=== PATIENT | female | born 1975 | race Caucasian/White ===

== ENCOUNTER 2020-05-20 05:48 | Day surgery (SDC) | payer BC ==
--- NOTE | 2020-05-17 14:01 | History and Physical Report ---
History of Present Illness Date of examination: 05/16/20 History of present illness: Patient has been reassessed/reevaluated. H&P has been reviewed. No interval changes. This is a 44 years old female who presents with menstrual disorder. She complains of heavy bleeding, lack of menses, clotting, fatigue and cramping, but denies mid-cycle spotting, dysmenorrhea, history of ovarian cysts, history of thyroid disease, history of fibroids, history of PCOS, history of bleeding disorder and lightheadedness. Interval between menses is > 30 days. Patient's work up has included a tranvaginal ultrasound which revealed thicken endometrium with fliud and endometrial mass The patient also presents with complains of "knot in my thigh" and desires it's removal Vital Signs: Patient Profile: 44 Years Old Female LMP: 05/14/2020 Height: 61 inches Weight: 277 pounds BMI: 52.33 Temp: 97.7 degrees F Menstrual History: LMP (date): 05/14/2020 Current Method of Contraception: None Date of Last Pap Smear: 03/16/2020 Past History : 2 Term Births: 2 Premature Births: 0 Living Children: 2 Para: 2 Mult. Births: 0 Prev : 2 Aborta: 0 Elect. Ab: 0 Spont. 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 Operations: (1992) (1997) Abnormal PAP: negative Uterine Anomaly: positive Infection History HIV Risk Eval: no TB exposure: no Hx of STD: None Current Allergies No known allergies Past Medical History: Negative Past Medical History Past Surgical History: (1992) (1997) Family History Summary: Other Family Member - Has No Family History of Ovarvian Cancer - Entered On: 03/16/2020 Other Family Member - Has No Family History of Colon Cancer - Entered On: 03/16/2020 Other Family Member - Has No Family History of Breast Cancer - Entered On: 03/16/2020 Other Family Member - Has Family History of Lung Cancer - Entered On: 03/16/2020 Risk Factors: Smoked Tobacco Use: Never smoker Smokeless Tobacco Use: Never Passive smoke exposure: no Drug use: no HIV high-risk behavior: no Caffeine use: <1 drinks per day Alcohol use: yes Type: occ Exercise: yes Times per week: 2 Seatbelt use: 100 % PAP Smear History: Date of Last PAP Smear: 03/16/2020 Review of Systems General Denies fever, chills, sweats, anorexia, fatigue, weakness, malaise, weight loss and sleep disorder. Complains of amenorrhea and abnormal vaginal bleeding. Denies vaginal discharge, incontinence, dysuria, hematuria, urinary frequency, menorrhagia, pelvic pain, genital sores, decreased libido, painful periods, painful sex, urinary urgency, hot flashes, vaginal dryness, vaginal itching and vaginal odor. CV Denies chest pains, palpitations, syncope, dyspnea on exertion, orthopnea, PND and peripheral edema. Resp Denies cough, dyspnea at rest, excessive sputum, hemoptysis, wheezing and pleurisy. GI Denies nausea, vomiting, diarrhea, constipation, change in bowel habits, abdominal pain, melena, hematochezia, jaundice, gas/bloating, indigestio n/heartburn, dysphagia and odynophagia. Breast Denies left breast lump, right breast lump, nipple discharge, bloody discharge from nipple, breast pain, abnormal mammogram and breast enlargement. Psych Denies depression, anxiety, irritability and mood swings. Past History Past Medical History: other (SEE HPI) Past Surgical History: Other (SEE HPI) Social history: full code (SEE HPI) Family history: other (SEE HPI) Medications and Allergies Allergies Allergy/AdvReac Type Severity Reaction Status Date / Time No Known Allergies Allergy Unverified 05/10/20 17:13 Home Medications Medication Instructions Recorded Confirmed Last Taken Type Phentermine HCl [Adipex-P] 37.5 mg PO QAM 05/10/20 05/10/20 04/29/20 History Review of Systems Constitutional: other (SEE HPI) Exam - Physical Exam Narrative exam: HEENT: normocephalic, no lesions or deformities Skin no significant abnormal lesions or rashes Chest: respiratory effort normal, clear to auscultation CV: regular, normal S1-S2, no murmur, no rub, no gallop Abdomen: obese normal bowel sounds, soft, nontender, no HSM Well healed pfannenstiel scar Neuro: no gross anomalities Extremities: no clubbing, cyanosis, or edema left thigh 4cm superficial mobile mass nontender c/w lipoma 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 Questions answered. Medical and surgical treatment options discussed Patient desires definitive treatment . Patient desires least invasive procedure Patient desires hysteroscopy ndications for and description of the hysteroscopy given. .Discussed risk of surgery including infection, bleeding and risk of perforating her uterus. Questions answered. Patient understands and desires to proceed (2) Menorrhagia Current Visit: No Status: Acute Qualifiers: Menorrhagia type: with irregular cycle Qualified Code(s): N92.1 - Excessive and frequent menstruation with irregular cycle Plan to address problem: Probably secondary to # 1 (3) Localized swelling, mass and lump, left lower limb Current Visit: No Status: Acute Plan to address problem: Lesion consistent with lipoma Patient desires removal Discuss the risks of the surgery including infection, bleeding possibly heavy enough to require a blood transfusion, possible damage to adjacent organs. . Questions answered patient agreed to proceed
[2020-05-18 09:49] LABS: Basophils % (Auto) 0.3 % (0.0-1.8); Eosinophils # (Auto) 0.1 K/mm3 (0.0-0.4); Eosinophils % (Auto) 1.2 % (0.0-4.3); Hematocrit 38.2 % (30.3-42.9); Hemoglobin 12.4 gm/dl (10.1-14.3); Lymphocytes # (Auto) 1.9 K/mm3 (1.2-5.4); Lymphocytes % (Auto) 28.9 % (13.4-35.0); Mean Corpuscular HGB Conc 32 % (30-34); Mean Corpuscular Volume 90 fl (79-97); Monocytes # (Auto) 0.3 K/mm3 (0.0-0.8); Monocytes % (Auto) 5.1 % (0.0-7.3); Platelet Count 293 K/mm3 (140-440); Red Blood Count 4.23 M/mm3 (3.65-5.03); Red Cell Distribution Width 15.3 % (13.2-15.2)
[2020-05-20] MEDS ORDERED: LACTATED RINGERS 1,000 ML IV SCH (06:00)
[2020-05-20] MEDS ORDERED: BACTERIOSTATIC SODIUM CHLORIDE 0.9% 30 ML VIAL INFILTRATI ONE (06:22)
[2020-05-20] MEDS ORDERED: MIDAZOLAM 2 MG/2 ML INJ IV NR (07:13)
--- NOTE | 2020-05-20 07:16 | Anesthesia Consultation ---
Anesthesia Consult and Med Hx Date of service: 05/20/20 - Airway Anesthetic Teeth Evaluation: Good ROM Head & Neck: Adequate Mental/Hyoid Distance: Adequate Mallampati Class: Class II Intubation Access Assessment: Good - Pulmonary Exam CTA: Yes - Cardiac Exam Cardiac Exam: RRR - Pre-Operative Health Status ASA Pre-Surgery Classification: ASA2 Proposed Anesthetic Plan: General - Central Nervous System Hx Psychiatric Problems: No - Other Systems Hx Alcohol Use: Yes (Occas) Hx Cancer: No
--- NOTE | 2020-05-20 07:18 | Anesthesia Day of Surgery ---
Anesthesia Day of Surgery - Day of Surgery Patient Examined: Yes Patient H&P Reviewed: Yes Patient is NPO: Yes
[2020-05-20] MEDS ORDERED: HYDROmorphone 1 MG/1 ML INJ IV PRN (07:23)
[2020-05-20] MEDS ORDERED: fentaNYL 100 MCG/2 ML INJ ONE (07:29)
[2020-05-20] MEDS ORDERED: ONDANSETRON 4 MG/2 ML INJ ONE (07:29)
[2020-05-20] MEDS ORDERED: propofoL 200 MG/20 ML VIAL IV ONE (07:29)
[2020-05-20] MEDS ORDERED: GLYCOPYRROLATE 0.4 MG/2 ML INJ ONE (07:45)
[2020-05-20] MEDS ORDERED: dexAMETHasone 20 MG/5 ML VIAL ONE (07:45)
[2020-05-20] MEDS ORDERED: KETOROLAC 30 MG/1 ML INJ ONE (07:45)
[2020-05-20] MEDS ORDERED: BUPIVACAINE/PF (0.5%) 5 MG/1 ML 30 ML VIAL INFILTRATI ONE ×2 (08:29→08:33)
[2020-05-20] MEDS ORDERED: SODIUM CHLORIDE 0.9% IRRIG SOLN 2000 ML IR ONE (08:30)
--- NOTE | 2020-05-20 09:11 | Operative Report ---
Operative Report Operative Report: Date of procedure: May 20, 2020 Pre-operative diagnosis: Menorrhagia with endometrial mass and left thigh mass Post-operative diagnosis: Same Procedure name(s): Operative hysteroscopy with Truclear and incision of thigh mass Surgeon: Aj Garcia MD Senior Systems Architect: [] Anesthesia: Gen. EBL: 25 cc Complications: None Findings: Hysteroscopy patient with some increased endometrial thickening and increased thickening myoma versus polyp posterior lower uterine segment. Both to be ostium were clearly seen. Left thigh ovoid mass approximately 4 to 5 cm in diameter was removed Specimen(s): Uterine mass and left thigh mass Procedure: Patient was brought into the operating room, where general anesthesia was induced without any difficulty. Patient was placed in dorsal lithotomy position. Prep and drape in the usual sterile manner. Timeout procedure was performed. The patient's bladder was emptied with a red rubber catheter. Speculum was placed in the vagina. Tenaculum was placed at 12:00 on the cervix. The uterus was sounded approximately 10 cm. The cervical os was dilated to a 19 [place] diameter. The hysteroscope was placed and the findings noted above. The Truclear device was primed. The device was placed through the cervical os. The mass was then removed using the Truclear completely. The mass was completely removed with no evidence of puncture on the uterine wall. All instruments were then removed with good hemostasis present. There was a hysteroscopic fluid deficit of 65 cc. Attention was then switched to the patient's left thigh. Incision was made through the previously marked surgical site with a scalpel above the mass. Adipose tissue overlying the mass was in size the mass was reached and found to be ovoid with a capsule but also fatty tissue inside the mass. The mass was extracted from subcuticular tissue both sharply and bluntly until was completely removed. Hemostasis was achieved in the tumor bed with cautery and 1 [id number] suture. The subcuticular space was reapproximated with 2-0 Vicryl. The skin was closed with interrupted 3-0 Vicryl with good hemostasis. 0.25% Marcaine was injected into the incision for postoperative pain relief. The patient was awakened in the operating room and accompanied to recovery room in good condition.
--- NOTE | 2020-05-20 09:18 | Short Stay Summary ---
Short Stay Documentation Date of service: 05/20/20 - History Past Medical History: other (SEE HPI) Past Surgical History: Other (SEE HPI) Social history: full code (SEE HPI) - Allergies and Medications Current Medications: Allergies No Known Allergies Allergy (Unverified 05/10/20 17:13) Home Medications Medication Instructions Recorded Confirmed Last Taken Type Phentermine HCl [Adipex-P] 37.5 mg PO QAM 05/10/20 05/10/20 04/29/20 History Acetaminophen/Codeine [Tylenol #3] 1 tab PO Q6HR PRN #10 tablet 05/20/20 Unknown Rx RX: Ibuprofen [Motrin 800 MG tab] 800 mg PO Q6H PRN #30 tablet 05/20/20 Unknown Rx Active Medications Hydromorphone HCl (Dilaudid) 0.5 mg IV Q10MIN PRN PRN Reason: Pain , Severe (7-10) Stop: 05/20/20 23:00 Lactated Ringer's (Lactated Ringers) 1,000 mls @ 100 mls/hr IV DIRECT COLIN Stop: 05/20/20 23:59 Last Admin: 05/20/20 06:40 Dose: 100 mls/hr Documented by: Midazolam HCl (Versed) 2 mg IV ONCE NR Stop: 05/20/20 23:00 Last Admin: 05/20/20 07:20 Dose: 2 mg Documented by: - Physical exam General appearance: no acute distress HEENT: Atraumatic Breasts: deferred Heart: Regular rate Gastrointestinal: normal Female Genitourinary: normal Rectal Exam: deferred Extremities: no ischemia - Brief post op/procedure progress note Date of procedure: 05/20/20 (Please see dictated operative note) Anesthesia: MAC - Hospital course Hospital course: Patient was admitted underwent the above him procedure without any complications. Patient will be discharged with follow-up in office in 1-2 weeks for postop check. - Disposition Condition at discharge: Good Disposition: [id number] TO HOME OR SELFCARE - Discharge Diagnoses (1) Endometrial mass Status: Acute (2) Menorrhagia Status: Acute Qualifiers: Menorrhagia type: with irregular cycle Qualified Code(s): N92.1 - Excessive and frequent menstruation with irregular cycle (3) Localized swelling, mass and lump, left lower limb Status: Acute Short Stay Discharge Plan Activity: advance as tolerated Diet: regular Wound: open to air Additional Instructions: Patient to call office for fever chills nausea, vomiting. heavy vaginal bleeding or pain uncontrolled by pain medication Follow up with: LINH BEATTY MD [Primary Care Provider] - 7 Days Prescriptions: RX: Ibuprofen [Motrin 800 MG tab] 800 mg PO Q6H PRN #30 tablet PRN Reason: Pain Acetaminophen/Codeine [Tylenol #3] 1 tab PO Q6HR PRN #10 tablet PRN Reason: Pain
[2020-05-20 10:03] VITALS: BP 134/82
--- NOTE | 2020-05-20 10:55 | Post Anesthesia Evaluation ---
- Post Anesthesia Evaluation Patient Participated: Yes Airway Patent: Yes Stable Respiratory Function: Yes Nausea/Vomiting: No Temp > 96.8F: Yes Pain Manageable: Yes Adequeate Hydration: Yes Anesthesia Complications: No
== END 2020-05-20 05:49 | disposition home or self-care (01) ==
LOC: OR 05:48
PROVIDERS: ATTEND Obstetrics & Gynecology
DX: N92.0 Excessive and frequent menstruation with regular cycle (principal); R22.42 Localized swelling, mass and lump, left lower limb; Z20.828 Contact with and (suspected) exposure to other viral communicable diseases; C76.52 Malignant neoplasm of left lower limb; N94.89 Other specified conditions associated with female genital organs and menstrual cycle; G43.909 Migraine, unspecified, not intractable, without status migrainosus; Z98.891 History of uterine scar from previous surgery; Z72.89 Other problems related to lifestyle; Z98.890 Other specified postprocedural states
CPT/HCPCS: 27364; 36415; 58558; 84703; 85025; 88307; 88341; 88342; A4217; J1100; J1885; J2250; J2405; J2704; J3010; J7120; U0003; 88305